=== PATIENT | male | born 1995 | race Caucasian/White ===

== ENCOUNTER 2018-05-28 15:20 | Emergency (ER) | payer MEDICAID, SELFPAY ==
[2018-05-28 15:22] VITALS: BP 139/77; PULSE 85; RESP 16; TEMP 36.6; O2SAT 99; BMI 25.8
--- NOTE | 2018-05-28 15:36 | ED.RN ---
SELENE FOUND ON COT IN TREATMENT ROOM BY THIS RN, PT NOT IN DEPT.
== END 2018-05-28 16:20 | disposition left against medical advice (07) ==
LOC: ED 16:07
PROVIDERS: Emergency Provider Emergency Medicine; Family Provider Pediatrics; PCP Pediatrics
DX: F32.9 Major depressive disorder, single episode, unspecified (principal)